=== PATIENT | female | born 1980 | race Caucasian/White ===

== ENCOUNTER 2017-01-04 08:53 | Emergency (ER) | payer OTHER ==
[2017-01-04 09:06] VITALS: BP 134/82
[2017-01-04] MEDS ORDERED: Metoclopramide 10 MG/2 ML SDV IVPUSH ONE (09:06)
[2017-01-04] MEDS ORDERED: HYDROmorphone 0.5 MG/0.5 ML Syringe IVPUSH ONE (09:10)
--- NOTE | 2017-01-04 09:10 | EDM.PDOC ---
ED HPI GENERAL MEDICAL PROBLEM - General Chief Complaint: Neuro Symptoms/Deficits Stated Complaint: STROKE SYMPTOMS Time Seen by Provider: 01/04/17 09:05 Source of Information: Reports: Patient History Limitations: Reports: No Limitations - History of Present Illness INITIAL COMMENTS - FREE TEXT/NARRATIVE: 36-year-old female presents to the ED with complaints of right hemifacial numbness tingling as well as right upper extremity numbness and tingling. She reports poor vision in her right eye with loss of temporal visual field. Symptoms seem to started last night. She has developed a right occipital headache today. Associated nausea without vomiting yet. He feels a little bit off balance today. Does not feel that she is photophobic. She's had migraines in the past but not recently. On no medications. No recent falls or head trauma. Onset: Gradual Onset Date: 01/03/17 Duration: Hour(s):, Getting Worse Location: Reports: Face, Upper Extremity, Right Quality: Reports: Other Severity: Moderate Improves with: Reports: None Worsens with: Reports: None Context: Denies: Activity, Exercise, Lifting, Sick Contact, Trauma, Other Associated Symptoms: Reports: Headaches, Malaise, Nausea/Vomiting. 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 Denies: Fever, Chills, Fatigue, Weight Loss HEENT: Reports: Vision Change (Feels loss of peripheral vision in right eye.) Respiratory: Reports: No Symptoms Cardiovascular: Reports: No Symptoms Endocrine: Reports: No Symptoms GI/Abdominal: Reports: Nausea : Reports: No Symptoms Musculoskeletal: Reports: No Symptoms Skin: Reports: No Symptoms Neurological: Reports: Headache, Numbness, Paresthesia (Right bautista-face right upper extremity down to her hand.), Tingling, Difficulty Walking, Weakness. Denies: Confusion, Dizziness, Pre-Existing Deficit ( As above), Seizure, Syncope , Tremors (States she is a little off balance.), Trouble Speaking, Change in Speech Psychiatric: Reports: No Symptoms Hematologic/Lymphatic: Reports: No Symptoms Immunologic: Reports: No Symptoms ED EXAM, NEURO - Physical Exam Exam: See Below Exam Limited By: No Limitations General Appearance: Alert, WD/WN, Anxious Eye Exam: Bilateral Eye: Normal Inspection, PERRL Throat/Mouth: Normal Inspection, Normal Lips, Normal Oropharynx, Other Head Exam: Atraumatic, Normocephalic Neck: Normal Inspection, Supple, Non-Tender, Full Range of Motion. No: Carotid Bruit, Lymphadenopathy (L), Lymphadenopathy (R) Respiratory/Chest: No Respiratory Distress, Lungs Clear, Normal Breath Sounds, No Accessory Muscle Use Cardiovascular: Normal Peripheral Pulses, Regular Rate, Rhythm, No Edema, No Gallop, No Murmur GI/Abdominal: Normal Bowel Sounds, Soft, Non-Tender, No Organomegaly, Other ( Lower abdominal surgical scar. She's had total abdominal hysterectomy) Neurological: Alert, Normal Mood/Affect, Normal Dorsiflexion, CN II-XII Intact, Normal Plantar Flexion, Normal Gait, Normal Reflexes, Oriented x 3, Abnormal Light Touch (Right bautista-face right arm), Other (I feel there is malingering evident. Normal rapid alternating movements. ). No: Ataxia, Abnormal Finger to Nose, Babinski DTR: 2+: Bicep (R), Bicep (L), Patella (R), Patella (L), Achilles (R), Achilles (L) Back Exam: Normal Inspection, Full Range of Motion Extremities: Normal Inspection, Normal Range of Motion, Non-Tender, No Pedal Edema, Normal Capillary Refill Psychiatric: Normal Affect, Normal Mood Skin Exam: Warm, Dry, Intact, Normal Color, No Rash Course - Vital Signs Last Recorded V/S: Last Vital Signs Temp 36.1 C 01/04/17 08:59 Pulse 74 01/04/17 08:59 Resp 16 01/04/17 08:59 BP 134/82 01/04/17 08:59 Pulse Ox 100 01/04/17 08:59 - Orders/Labs/Meds Orders: Active Orders 24 hr Category Date Time Status Dextrose 5%-0.9% NaCl [Dextrose 5%-Normal Saline] 1,000 Med 01/04/17 09:15 Active ml IV ASDIRECTED Ketorolac [Toradol] Med 01/04/17 11:45 Active 30 mg IVPUSH ONETIME Medication Orders Dextrose/Sodium Chloride (Dextrose 5%-Normal Saline) 1,000 mls @ 125 mls/hr IV ASDIRECTED NAZARIO Last Admin: 01/04/17 10:00 Dose: 125 mls/hr Ketorolac Tromethamine (Toradol) 30 mg IVPUSH ONETIME NAZARIO Last Admin: 01/04/17 12:07 Dose: 30 mg Labs: Laboratory Tests 01/04/17 01/04/17 01/04/17 Range/Units 09:43 09:43 09:43 WBC 5.65 (3.98-10.04) K/mm3 RBC 4.53 (3.98-5.22) M/mm3 Hgb 13.7 (11.2-15.7) gm/L Hct 41.3 (34.1-44.9) % MCV 91.2 (79.4-94.8) fl MCH 30.2 (25.6-32.2) pg MCHC 33.2 (32.2-35.5) g/dl RDW Std Deviation 43.0 (36.4-46.3) fL Plt Count 211 (182-369) K/mm3 MPV 11.0 (9.4-12.3) fl Neutrophils % (Manual) 70 H (40-60) % Band Neutrophils % 0 (0-10) % Lymphocytes % (Manual) 27 (20-40) % Atypical Lymphs % 0 % Monocytes % (Manual) 1 L (2-10) % Eosinophils % (Manual) 2 (0.7-5.8) % Basophils % (Manual) 0 L (0.1-1.2) Platelet Estimate Adequate RBC Morph Comment Normal PT 11.4 (8.0-13.0) SECONDS INR 1.04 Sodium 141 (136-145) mEq/L Potassium 3.8 (3.5-5.1) mEq/L Chloride 107 (98-107) mEq/L Carbon Dioxide 29 (21-32) mEq/L Anion Gap 8.8 (5-15) BUN 4 L (7-18) mg/dL Creatinine 0.8 (0.55-1.02) mg/dL Est Cr Clr Drug Dosing 82.33 mL/min Estimated GFR (MDRD) > 60 (>60) mL/min BUN/Creatinine Ratio 5.0 L (14-18) Glucose 87 (74-106) mg/dL Calcium 9.2 (8.5-10.1) mg/dL Total Bilirubin 0.5 (0.2-1.0) mg/dL AST 27 (15-37) U/L ALT 25 (14-59) U/L Alkaline Phosphatase 57 (46-116) U/L Total Protein 6.4 (6.4-8.2) g/dl Albumin 3.4 (3.4-5.0) g/dl Globulin 3.0 gm/dL Albumin/Globulin Ratio 1.1 (1-2) Meds: Medications Generic Name Dose Route Start Last Admin Trade Name Freq PRN Reason Stop Dose Admin Dextrose/Sodium Chloride 1,000 mls @ 125 mls/hr 01/04/17 09:15 01/04/17 10:00 Dextrose 5%-Normal Saline IV 125 mls/hr ASDIRECTED NAZARIO Administration Ketorolac Tromethamine 30 mg 01/04/17 11:45 01/04/17 12:07 Toradol IVPUSH 30 mg ONETIME NAZARIO Administration Discontinued Medications Generic Name Dose Route Start Last Admin Trade Name Freq PRN Reason Stop Dose Admin Hydromorphone HCl 0.5 mg 01/04/17 09:10 01/04/17 10:02 Dilaudid IVPUSH 01/04/17 09:11 0.5 mg ONETIME ONE Administration Metoclopramide HCl 7.5 mg 01/04/17 09:06 01/04/17 10:03 Reglan IVPUSH 01/04/17 09:07 7.5 mg ONETIME ONE Administration - Radiology Interpretation Free Text/Narrative:: 36-year-old female presents the ED with complaints of loss of peripheral vision on the right side. Associated headache at the base of vertex of the skull. Associated nausea without vomiting. Right hemifacial numbness and tingling as well as right upper extremity numbness numbness and tingling or paresthesias. There are no motor deficits. Reflexes and are intact. Babinski is negative. She exhibits weakness of the right upper extremity and on attempts to assess motor power and tone as well as the right lower extremity. However there is no pronator drift and she can do rapid alternating movements and finger to nose assessment without issue. Migraine equivalent. Plan CT head will be done. Routine labs. IV will be D5 normal saline at 150 mils per hour. Given Reglan 7.5 mg IV and Dilaudid 0.5 mg IV for nausea and headache relief. - Re-Assessments/Exams Free Text/Narrative Re-Assessment/Exam: 01/04/17 09:24 CT of the head is within normal limits showing no signs of intracranial bleeding or mass effect. 01/04/17 10:46 labs are back and reveal a normal white count at 5.65 with 70% neutrophils and no bands hemoglobin is 13.7 hematocrit is 41.3 platelets are 211 ,000. Coags are normal. Chemistry is completely normal. 01/04/17 11:18 patient is feeling improved in terms of no nausea and the headache pressure discomfort is easing up substantially. I had a look at her fundi although I could not visualize much of the fundi due to papillary constriction to light. She still has poor and numbness and tingling in her right bautista-face and arm but there is no focal loss of function. Suspect this is a migraine equivalent with some vasospasm causing this. I will monitor for another half an hour and see how she's feeling. Departure - Departure Time of Disposition: 11:39 Disposition: Home, Self-Care 01 Condition: Fair Clinical Impression: Migraine equivalent syndrome - Discharge Information Prescriptions: Ketorolac [Toradol] 10 mg PO Q6H PRN #5 tablet PRN Reason: Headache relief Metoclopramide HCl [Reglan] 10 mg PO Q6H PRN #5 tablet PRN Reason: Headache relief Instructions: Migraine Headache, [id number] Referrals: Ira Steen PA-C [Primary Care Provider] - Forms: ED Department Discharge Additional Instructions: Evaluation in the emergency room today in regards to development of right hemifacial and right upper extremity numbness and tingling which we call paresthesias. He did feeling of being off balance and loss of temporal visual field in the right eye. Neuro exam was completely normal. CT of the head also proved to be completely normal. Lab work including magnesium level was also all normal. Therefore think you're suffering a migraine equivalent headache with all we call basal spasm. This means an artery narrows for unknown reason often a dietary trigger and then delivers less oxygen and nutrition to that part of the brain causing the symptoms of numbness and tingling and visual field changes. You're treated in the ED ER with Dilaudid 0.5 mg and Reglan 10 mg 4 migraine headache also you're given Toradol 30 g IV before he left the ED. Suggest home to bed to sleep for the next 3-4 hours. Resume fluids and regular diet when able. I have written a prescription for Toradol 10 mg and Reglan Temodar tablets and you can take one of each at the same time at the onset of a severe headache or in 6 hours time later today if needed for persistent symptoms. If symptoms worsen in any fashion or form return to the emergency room. - My Orders Last 24 Hours: My Active Orders 01/04/17 09:15 Dextrose 5%-0.9% NaCl [Dextrose 5%-Normal Saline] 1,000 ml IV ASDIRECTED 01/04/17 11:45 Ketorolac [Toradol] 30 mg IVPUSH ONETIME - Assessment/Plan Last 24 Hours: My Active Orders 01/04/17 09:15 Dextrose 5%-0.9% NaCl [Dextrose 5%-Normal Saline] 1,000 ml IV ASDIRECTED 01/04/17 11:45 Ketorolac [Toradol] 30 mg IVPUSH ONETIME
[2017-01-04] MEDS ORDERED: Dextrose 5%-0.9% NaCl 1,000 ML IV SCH (09:15)
--- NOTE | 2017-01-04 09:36 | CT ---
Head CT Technique: Multiple axial sections through the brain were obtained. Intravenous and oral contrast was not utilized. Findings: Ventricles along with basal cisterns and sulci over the convexities are within normal limits for the patient's age. No abnormal parenchymal densities are seen. No evidence of intracranial hemorrhage. No midline shift or mass effect is seen. Visualized sinuses are clear. No acute calvarial abnormality is seen. Impression: 1. No acute abnormality identified on noncontrast head CT study. Please correlate if patient's symptoms warrant further evaluation by MRI. Diagnostic code #1
[2017-01-04] MEDS ORDERED: Ketorolac 30 MG/ML SDV IVPUSH SCH (11:45)
== END 2017-01-04 12:14 | disposition home or self-care (01) ==
LOC: JD.ED 08:53
DX: G43.109 Migraine with aura, not intractable, without status migrainosus (principal); Z91.018 Allergy to other foods
CPT/HCPCS: 36415; 70450; 80053; 85025; 85610; 96361; 96374; 96375; 99284; J1170; J1885; J2765; J7042

== ENCOUNTER 2017-02-23 17:20 | Emergency (ER) | payer OTHER ==
[2017-02-23 17:29] VITALS: BP 127/78
--- NOTE | 2017-02-23 17:41 | EDM.PDOC ---
ED HPI GENERAL MEDICAL PROBLEM - General Chief Complaint: Neurological Problem Stated Complaint: [facility] Time Seen by Provider: 02/23/17 17:22 Source of Information: Reports: Patient, Old Records (December ER visit) History Limitations: Reports: No Limitations - History of Present Illness INITIAL COMMENTS - FREE TEXT/NARRATIVE: 37-year-old female presents via [facility] for evaluation and treatment of a headache, vision changes, dizziness and syncope. Reportedly the patient had a migraine today and felt very dizzy. She was laying down. She reports that she got up and was a standing position when she all of a sudden felt to the ground. She does not remember much of this. She is currently complaining of headache, neck pain, double vision, nausea and right-sided weakness. She denies any vomiting, chest pain, shortness of breath, abdominal pain or any pain in the extremities. Review the patient's records showed that she was here recently and diagnosed with atypical migraines. At that time she had a head CT and labs done. Location: Reports: Head, Neck - Related Data Allergies Allergy/AdvReac Type Severity Reaction Status Date / Time tomato Allergy Airway Verified 02/23/17 17:29 Tightness Home Meds: Home Meds Polyethylene Glycol 3350 [MiraLAX] 1 dose PO DAILY 02/23/17 [History] SUMAtriptan [Imitrex] 25 mg PO ONETIME PRN #20 tablet 02/23/17 [Rx] Past Medical History Cardiovascular History: Reports: Hypertension Musculoskeletal History: Reports: Back Pain, Chronic, Other (See Below) Other Musculoskeletal History: arthralgia Neurological History: Reports: Migraines, Other (See Below) Endocrine/Metabolic History: Reports: Other (See Below) Other Endocrine/Metabolic History: hypoglycemia - Past Surgical History HEENT Surgical History: Reports: Tonsillectomy Female Surgical History: Reports: Other (See Below) Other Female Surgeries/Procedures: uterus removed, pt still has ovaries Social & Family History - Tobacco Use Smoking Status *Q: Never Smoker - Caffeine Use Caffeine Use: Reports: Coffee - Recreational Drug Use Recreational Drug Use: No Review of Systems - Review of Systems Review Of Systems: See Below Eyes: Reports: Vision Change (reports double vision) Ears: Reports: Dizziness Respiratory: Denies: Shortness of Breath Cardiovascular: Denies: Chest Pain GI/Abdominal: Reports: Nausea. Denies: Abdominal Pain, Vomiting Musculoskeletal: Reports: Neck Pain. Denies: Arm Pain, Back Pain, Leg Pain Neurological: Reports: Dizziness, Headache, Syncope ED EXAM, GENERAL - Physical Exam Exam: See Below Exam Limited By: No Limitations General Appearance: Alert, WD/WN, No Apparent Distress Eye Exam: Bilateral Eye: PERRL, Other (patinet could not gaze to the right while testing EOMs; no abnormalities gazing to the left (both eyes) quetionable effort) Ears: Normal External Exam, Normal Canal, Normal TMs Ear Exam: Bilateral Ear: TM normal Nose: Normal Inspection, No Blood Throat/Mouth: Normal Inspection, Normal Voice, No Airway Compromise, Perioral Cyanosis Head: Atraumatic Neck: Normal Inspection, Supple, Tender Lateral, Tender Midline, Other (c- collar applied upon arrival ) Respiratory/Chest: No Respiratory Distress, Lungs Clear, Normal Breath Sounds Cardiovascular: Normal Peripheral Pulses, Regular Rate, Rhythm, No Murmur Peripheral Pulses: 2+: Radial (L), Radial (R), Posterior Tibial (L), Posterior Tibial (R), Dorsalis Pedis (L), Dorsalis Pedis (R) GI/Abdominal: Normal Bowel Sounds, Soft, Non-Tender Extremities: Normal Inspection Neurological: Alert, Oriented, Normal Cognition, Normal Gait, Other (promotion producer 4/5 on the right and 5/5 on the left; reports decreased sensation to light touch to the right face) Psychiatric: Normal Affect, Normal Mood Skin Exam: Warm, Dry, Normal Color EKG INTERPRETATION EKG Date: 02/23/17 Time: 18:00 Rhythm: NSR Rate (Beats/Min): 61 [place]: Normal P-Wave: Present QRS: Normal ST-T: Normal QT: Normal EKG Interpretation Comments: NSR at 61 bpm. No acute changes. Reviewed by myself and Dr. Quiñones. Course - Vital Signs Last Recorded V/S: Last Vital Signs Temp 36.3 C 02/23/17 17:24 Pulse 67 02/23/17 17:24 Resp 16 02/23/17 17:24 BP 127/78 02/23/17 17:24 Pulse Ox 100 02/23/17 17:24 - Orders/Labs/Meds Labs: Laboratory Tests 02/23/17 02/23/17 02/23/17 Range/Units 17:44 17:50 17:50 WBC 5.50 (3.98-10.04) K/mm3 RBC 4.54 (3.98-5.22) M/mm3 Hgb 13.7 (11.2-15.7) gm/L Hct 41.5 (34.1-44.9) % MCV 91.4 (79.4-94.8) fl MCH 30.2 (25.6-32.2) pg MCHC 33.0 (32.2-35.5) g/dl RDW Std Deviation 41.9 (36.4-46.3) fL Plt Count 252 (182-369) K/mm3 MPV 10.9 (9.4-12.3) fl Neut % (Auto) 56.1 (34.0-71.1) % Lymph % (Auto) 32.5 (19.3-51.7) % Ross % (Auto) 8.7 (4.7-12.5) % Eos % (Auto) 2.2 (0.7-5.8) Baso % (Auto) 0.5 (0.1-1.2) % Neut # (Auto) 3.08 (1.56-6.13) K/mm3 Lymph # (Auto) 1.79 (1.18-3.74) K/mm3 Ross # (Auto) 0.48 H (0.24-0.36) K/mm3 Eos # (Auto) 0.12 (0.04-0.36) K/mm3 Baso # (Auto) 0.03 (0.01-0.08) K/mm3 Sodium 142 (136-145) mEq/L Potassium 3.5 (3.5-5.1) mEq/L Chloride 106 (98-107) mEq/L Carbon Dioxide 28 (21-32) mEq/L Anion Gap 11.5 (5-15) BUN 7 (7-18) mg/dL Creatinine 0.8 (0.55-1.02) mg/dL Est Cr Clr Drug Dosing TNP Estimated GFR (MDRD) > 60 (>60) mL/min BUN/Creatinine Ratio 8.8 L (14-18) Glucose 86 (74-106) mg/dL Calcium 9.2 (8.5-10.1) mg/dL Total Bilirubin 0.5 (0.2-1.0) mg/dL AST 16 (15-37) U/L ALT 17 (14-59) U/L Alkaline Phosphatase 72 (46-116) U/L Total Protein 7.2 (6.4-8.2) g/dl Albumin 3.6 (3.4-5.0) g/dl Globulin 3.6 gm/dL Albumin/Globulin Ratio 1.0 (1-2) Urine Color Yellow (Yellow) Urine Appearance Clear (Clear) Urine pH 7.5 (5.0-8.0) Ur Specific [place] 1.015 (1.005-1.030) Urine Protein Negative (Negative) Urine Glucose (UA) Negative (Negative) Urine Ketones Negative (Negative) Urine Occult Blood Negative (Negative) Urine Nitrite Negative (Negative) Urine Bilirubin Negative (Negative) Urine Urobilinogen 0.2 (0.2-1.0) Ur Leukocyte Esterase Negative (Negative) Urine RBC 0-5 (0-5) /hpf Urine WBC 0-5 (0-5) /hpf Ur Epithelial Cells Not seen (0-5) /hpf Urine Bacteria Rare (FEW) /hpf Urine Mucus Not seen (FEW) /hpf Meds: Medications Discontinued Medications Generic Name Dose Route Start Last Admin Trade Name Freq PRN Reason Stop Dose Admin Diphenhydramine HCl 25 mg 02/23/17 18:52 02/23/17 19:19 Benadryl IVPUSH 02/23/17 18:53 25 mg ONETIME ONE Administration Haloperidol Lactate 2.5 mg 02/23/17 20:01 02/23/17 20:18 Haldol IVPUSH 02/23/17 20:02 2.5 mg ONETIME ONE Administration Sodium Chloride 1,000 mls @ 999 mls/hr 02/23/17 18:52 02/23/17 19:23 Normal Saline IV 02/23/17 19:52 999 mls/hr ONETIME ONE Administration Metoclopramide HCl 5 mg 02/23/17 18:52 02/23/17 19:19 Reglan IVPUSH 02/23/17 18:53 5 mg ONETIME ONE Administration Sodium Chloride 10 ml 02/23/17 18:52 02/23/17 20:20 Saline Flush FLUSH 10 ml ASDIRECTED PRN Administration Keep Vein Open - Radiology Interpretation Free Text/Narrative:: CT of the head without contrast impression per [facility] 1. No acute intracranial injury or skull fracture. 2. No significant interval change when compared to the CT head without contrast 01-04-17. CT of the cervical spine impression without contrast per [facility] 1. No sign of acute cervical spine injury. CT Results Date: 02/23/17 - Re-Assessments/Exams Free Text/Narrative Re-Assessment/Exam: 02/23/17 19:36 Patient reports that her headache is getting worse. States that she continues to have double vision. I will order her some Toradol for her headache at this time. C-collar removed. 02/23/17 20:05 Headache persists. No lab abnormalities identified. Given she has a history of atypical migraine and has been on medication for migraines in the past I feel this is likely what this is today. I do not think she is having a CVA. Case was discussed with Dr. Dixon who agrees. 02/23/17 21:18 Headache improved. Symptoms improved. Patient reports she was previously on imitrex. We will restart this today. Discharge instructions as documented. Departure - Departure Time of Disposition: 21:20 Disposition: DC/Tfer to Court of Law En 21 Condition: Good Clinical Impression: Atypical migraine - Discharge Information Prescriptions: SUMAtriptan [Imitrex] 25 mg PO ONETIME PRN #20 tablet PRN Reason: Headache Instructions: Migraine Headache Referrals: PCP,None [Primary Care Provider] - Gilbert Turner MD [Physician] - Forms: ED Department Discharge Additional Instructions: Imitrex 1 tab at onset of headache. May repeat dose after 2 hours if your migraine persists. May continue take [id number] Tylenol or Motrin as needed for pain relief. Follow-up with neurology as soon as you are able to. Recommend Dr. Turner at the [facility] ([place]. Please call [phone] to schedule with him. recommending establishing with family medicine in the interim for Imitrex refills and if needed help with a referral to neurology. Please return to the ER for symptoms change or worsen.
[2017-02-23] MEDS ORDERED: Sodium Chloride 0.9% 10 ML Syringe FLUSH PRN (18:52)
[2017-02-23] MEDS ORDERED: Metoclopramide 10 MG/2 ML SDV IVPUSH ONE (18:52)
[2017-02-23] MEDS ORDERED: diphenhydrAMINE 50 MG/ML SDV IVPUSH ONE (18:52)
[2017-02-23] MEDS ORDERED: Sodium Chloride 0.9% 1,000 ML IV ONE (18:52)
[2017-02-23] MEDS ORDERED: Haloperidol Lactate 5 MG/ML SDV IVPUSH ONE (20:01)
--- NOTE | 2017-02-27 18:07 | CT ---
CT cervical spine Technique: Multiple axial sections were obtained from above the C1 level inferiorly to the mid T2 level. Reconstructed sagittal and coronal images were reviewed. Comparison: No previous cervical spine imaging. Findings: Visualized mastoid sinuses and middle ear cavities are clear. Posterior skull base is intact. Mild degenerative change noted between the dens and anterior arch of C1. Mild anterior disc space narrowing noted at C5-C6. Mild anterior disc narrowing noted at C6-C7. Slight anterior osteophyte seen at both these levels. Sclerotic area noted to the right side of T1 believed to represent incidental bone island. Minimal degenerative change scattered within the apophyseal joints and uncovertebral joints. Vertebral bodies and posterior arches are intact. No bony central or bony neural foraminal stenosis is seen. No abnormal subluxation is seen on the reconstructed sagittal images. Impression: 1. Mild degenerative change as noted above. 2. Incidental bone island within T1. 3. No acute abnormality is identified on CT study of the cervical spine. Diagnostic code #2 I agree with preliminary report issued by [facility] ([facility] report finalized on 02/23/17, 8:30 PM Central Time)
--- NOTE | 2017-02-27 18:07 | CT ---
Head CT Technique: Multiple axial sections through the brain were obtained. Comparison: Previous head CT study of 01/04/17. Findings: Ventricles along with basal cisterns and sulci over the convexities are within normal limits for the patient's age. No abnormal parenchymal densities are seen. No evidence of intracranial hemorrhage. No midline shift or mass effect is identified. Bone window settings were reviewed which show the visualized sinuses to appear clear. No acute calvarial abnormality is identified. Impression: 1. No acute intracranial abnormality is identified. No significant change from prior head CT exam. Diagnostic code #1 I agree with preliminary report issued by [facility] ([facility] report finalized on 02/23/17, 8:28 PM Central Time)
--- NOTE | 2017-02-28 12:52 | CR ---
Chest: Portable view of the chest was obtained. Comparison: No prior chest x-ray. Heart size and mediastinum are normal. Lungs are clear. Bony structures are grossly intact. Surgical clips seen from prior cholecystectomy. Impression: 1. Nothing acute is identified on portable chest x-ray. Diagnostic code #2
== END 2017-02-23 21:46 ==
LOC: JD.ED 17:20
DX: G43.909 Migraine, unspecified, not intractable, without status migrainosus (principal); I10 Essential (primary) hypertension; Z98.890 Other specified postprocedural states; Z79.899 Other long term (current) drug therapy; Z91.018 Allergy to other foods
CPT/HCPCS: 36415; 70450; 71010; 72125; 80053; 81001; 85025; 93005; 96361; 96374; 96375; 99285; J1200; J1630; J2765; J7040; J7050; P9612; 93010; 99284-25